=== PATIENT | female | born 2000 | race Caucasian/White ===

== ENCOUNTER 2021-07-06 01:52 | Emergency (ER) | payer BC ==
[~2021-07-06] VITALS: Ht 162.6 cm; Wt 47.6 kg
[2021-07-06] MEDS ORDERED: DULO30CA2 PO (02:04)
[2021-07-06] MEDS ORDERED: LEVO75TA PO (02:04)
--- NOTE | 2021-07-06 02:10 | NUR ---
pt ambulated to room 2b, pt denies chest pain or short of breath. able to speak in complete sentences. warm blanket provided to patient. pt states pain radiates to her back and face area. states she does get headaches at times.
--- NOTE | 2021-07-06 02:23 | NUR ---
DR. PAIGE AT BEDSIDE, MSE IN PROGRESS.
[2021-07-06] MEDS ORDERED: KETOROLAC TROMETHAMINE 30 MG INJ IVP ONE (02:30)
[2021-07-06] MEDS ORDERED: METOCLOPRAMIDE HCL 10 MG/2 ML VIAL IV ONE (02:30)
[2021-07-06] MEDS ORDERED: diphenhydrAMINE 50 MG/1 ML VIAL IV ONE (02:30)
[2021-07-06] MEDS ORDERED: IV NS 1000 ML 1,000 ML IV ONE (02:30)
[2021-07-06] MEDS ORDERED: METOCLOPRAMIDE HCL 10 MG/2 ML VIAL ONE (02:46)
[2021-07-06] MEDS ORDERED: KETOROLAC TROMETHAMINE 30 MG INJ ONE (02:46)
[2021-07-06] MEDS ORDERED: diphenhydrAMINE 50 MG/1 ML VIAL ONE (02:46)
[2021-07-06] MEDS ORDERED: NAPR-1164 PO (02:52)
[2021-07-06] MEDS ORDERED: SUMA100T16 PO (02:52)
[2021-07-06] MEDS ORDERED: PROC-11 PO (02:52)
[2021-07-06 04:01] VITALS: BP 104/63
== END 2021-07-06 04:17 | disposition home or self-care (01) ==
LOC: ER 02:01
DX: G43.909 Migraine, unspecified, not intractable, without status migrainosus (principal); E03.9 Hypothyroidism, unspecified; Z79.890 Hormone replacement therapy; F41.9 Anxiety disorder, unspecified; Z79.899 Other long term (current) drug therapy
CPT/HCPCS: 96374; 96375; 99284; J1200; J1885; J2765; A4663; J7030